=== PATIENT | female | born 1940 | race Caucasian/White ===

== ENCOUNTER 2018-10-17 15:53 | Inpatient (IN) | payer OTHER ==
[~2018-10-17] VITALS: Ht 149.9 cm; Wt 46.7 kg
[~2018-10-17 15:53] MED LIST: ATORVASTATIN CA40 MG PO; FOLIVANE-PLUS1 EACH; METFORMIN HCL500 MG PO; SYNTHROID50 MCG PO; ZESTRIL2.5 MG PO; [UNRECOGNIZED DRUG - OTHER]
== END 2018-10-19 15:01 | disposition home or self-care (01) | DRG 735 ==
LOC: SURH 18:20 → SEC-K 18:20 → SURH 19:27 → O/R 10-18 11:59 → SURH 10-19 15:01
PROVIDERS: ADMIT Obstetrics & Gynecology Gynecologic Oncology
PROC: 07TC4ZZ Resection of Pelvis Lymphatic, Percutaneous Endoscopic Approach (ICD-10-PCS; principal; 2018-10-17)
PROC: 0UT9FZZ Resection of Uterus, Via Natural or Artificial Opening With Percutaneous Endoscopic Assistance (ICD-10-PCS; 2018-10-17)
PROC: 0UT7FZZ Resection of Bilateral Fallopian Tubes, Via Natural or Artificial Opening With Percutaneous Endoscopic Assistance (ICD-10-PCS; 2018-10-17)
PROC: 0UT2FZZ Resection of Bilateral Ovaries, Via Natural or Artificial Opening With Percutaneous Endoscopic Assistance (ICD-10-PCS; 2018-10-17)
DX: C54.1 Malignant neoplasm of endometrium (principal); D25.0 Submucous leiomyoma of uterus; Z88.0 Allergy status to penicillin